=== PATIENT | male | born 1980 | race Hispanic/Latino ===

== ENCOUNTER 2017-11-08 06:56 | Emergency (ER) | payer OTHER ==
[2017-11-08] MEDS: MORPHINE 4 MG/ML 1ML VIAL (J2270) IV (06:31)
[2017-11-08] MEDS: ONDANSETRON 4MG/2ML VIAL (J2405) IV (06:31)
[2017-11-08] MEDS: predniSONE 20 MG TAB PO (08:01)
[2017-11-08] MEDS: diazePAM 5 MG TAB PO (08:01)
[2017-11-08] MEDS: PERCOCET 5MG/325MG TAB PO (08:01)
== END 2017-11-08 08:28 | disposition home or self-care (01) ==
LOC: M ED 06:56
DX: M50.10 Cervical disc disorder with radiculopathy, unspecified cervical region (principal); Z79.899 Other long term (current) drug therapy
CPT/HCPCS: J2270